=== PATIENT | male | born 1990 | race Caucasian/White ===

== ENCOUNTER 2022-11-18 09:09 | Observation (INO) | payer OTHER ==
[2022-11-18] MEDS ORDERED: SODIUM CHLORIDE 0.9% 1,000 ML IV STA (09:29)
--- NOTE | 2022-11-18 09:40 | ED ---
Arrhythmia/Palpitations HPI - General Chief Complaint: Arrhythmia/Palpitations Stated Complaint: Elevated HR Time Seen by Provider: 11/18/22 09:12 Source: patient, EMS, RN notes reviewed Mode of arrival: EMS Limitations: no limitations - History of Present Illness Initial Comments: This is a 32-year-old male presents emergency Department with chief complaint of shortness breath, palpitations. Patient states that he started having symptoms last days worse this morning states that he is short of breath with minimal exertion symptoms feel like his heart is racing just sitting there. He does admit he has been sick for her for couple weeks for polysubstance abuse has no withdrawal symptoms currently. He did test positive last week for: Report was n egative on Wednesday. Patient states he has no prior lung disease including asthma or COPD. He is a daily smoker. Patient denies any prior cardiac disease no prior thyroid problems. - Related Data Home Medications Medication Instructions Recorded Confirmed Acetaminophen [Tylenol] 650 mg PO Q4H PRN MDD 4 doses 11/18/22 11/18/22 Calcium Carb/Mag Ox/Zinc Sulf 1 tab PO TID PRN 11/18/22 11/18/22 [Gzm-Ghs-Dbsl 334-134-5 mg Tab] Chlorpheniramine Maleate 4 mg PO Q4H PRN 11/18/22 11/18/22 [Chlor-Trimeton] Hyoscyamine Sulfate [Levsin] 0.125 mg PO QID PRN 11/18/22 11/18/22 Ibuprofen [Motrin Ib] 600 mg PO Q6H PRN 11/18/22 11/18/22 Loperamide HCl [Imodium A-D] 4 mg PO QID PRN MDD 8 tablets 11/18/22 11/18/22 Metoprolol Tartrate [Lopressor] 25 mg PO BID 11/18/22 11/18/22 Multivitamins, Thera [Multivitamin 1 tab PO DAILY 11/18/22 11/18/22 (formulary)] Thiamine [Vitamin B-1] 100 mg PO DAILY 11/18/22 11/18/22 busPIRone HCL 10 mg PO TID 11/18/22 11/18/22 guaiFENesin [guaiFENesin Oral 200 mg PO Q4H PRN 11/18/22 11/18/22 Solution] ondansetron HCL [Zofran] 8 mg PO Q6H PRN 11/18/22 11/18/22 Allergies Allergy/AdvReac Type Severity Reaction Status Date / Time latex Allergy Unknown Verified 11/18/22 11:53 Review of Systems ROS Statement: Those systems with pertinent positive or pertinent negative responses have been documented in the HPI. ROS Other: All systems not noted in ROS Statement are negative. Past Medical History Past Medical History: CVA/TIA, Hypertension History of Any Multi-Drug Resistant Organisms: None Reported Past Surgical History: No Surgical Hx Reported Past Psychological History: No Psychological Hx Reported Smoking Status: Current every day smoker Past Alcohol Use History: Abuse Past Drug Use History: Cocaine, Marijuana, Opiates, Prescription Drug Abuse General Exam Limitations: no limitations General appearance: alert, in no apparent distress Head exam: Present: atraumatic, normocephalic, normal inspection Eye exam: Present: normal appearance, PERRL, EOMI. Absent: scleral icterus, con junctival injection, periorbital swelling ENT exam: Present: normal exam, normal oropharynx, mucous membranes moist Neck exam: Present: normal inspection, full ROM. Absent: tenderness, meningismus, lymphadenopathy Respiratory exam: Present: normal lung sounds bilaterally. Absent: respiratory distress, wheezes, rales, rhonchi, stridor Cardiovascular Exam: Present: normal rhythm, tachycardia, normal heart sounds. Absent: systolic murmur, diastolic murmur, rubs, gallop, clicks GI/Abdominal exam: Present: soft, normal bowel sounds. Absent: distended, tenderness, guarding, rebound, rigid Neurological exam: Present: alert, oriented X3 Skin exam: Present: warm, dry, intact, normal color. Absent: rash Course Vital Signs 11/18/22 11/18/22 09:12 09:22 Temperature 97.8 F Pulse Rate 97 135 H Respiratory 18 Rate Blood Pressure 120/78 O2 Sat by Pulse 99 Oximetry EKG Findings - EKG Comments: EKG Findings:: EKG performed at 9:31 sinus rhythm with short OR rate of 9116 QRS 86 QT/QTC 336/384 - EKG Results: EKG: interpreted by LUAN Medical Decision Making - Medical Decision Making Was pt. sent in by a medical professional or institution (, PA, OFFICE TECHNOLOGY INSTRUCTOR, urgent care, hospital, or fpc...) When possible be specific @ -[facility]] Did you speak to anyone other than the patient for history (EMS, parent, family, police, friend...)? What history was obtained from this source @ -EMS provided complaint at [facility] along with vitals and prehospital care Did you review nursing and triage notes (agree or disagree)? Why? @ -I reviewed and agree with nursing and triage notes Were old charts reviewed (outside hosp., previous admission, EMS record, old EKG, old radiological studies, urgent care reports/EKG's, fpc records)? Report findings @ -No old charts were reviewed Differential Diagnosis (chest pain, altered mental status, abdominal pain women, abdominal pain men, vaginal bleeding, weakness, fever, dyspnea, syncope, headache, dizziness, GI bleed, back pain, seizure, CVA, palpatations, mental health, musculoskeletal)? @ -nDifferential Palpitations Ventricular arrhythmias, atrial arrhythmias, myocardial infarction, anemia, thyrotoxicosis, electrolyte imbalance, hypokalemia, pulmonary embolism, pulmonary disease, drugs, alcohol, anxiety, stress.... This is not meant to be an all-inclusive list.able EKG interpreted by me (3pts min.). @ -As above X-rays interpreted by me (1pt min.). @ -Chest x-ray shows no acute process CT interpreted by me (1pt min.). @ -None done U/S interpreted by me (1pt. min.). @ -None done What testing was considered but not performed or refused? (CT, X-rays, U/S, labs)? Why? @ -None What meds were considered but not given or refused? Why? @ -None Did you discuss the management of the patient with other professionals (professionals i.e. , PA, OFFICE TECHNOLOGY INSTRUCTOR, lab, RT, psych nurse, addiction social worker, benefit authorizer, teacher, public service officer, casework manager)? Give summary @ -Dr. Bowman Givens patient's persistent tachycardia with minimal ambulation with a negative d-dimer, troponin, x-ray. Patient will be admitted for further evaluation and possible echocardiogram, cardiology evaluation. Was smoking cessation discussed for >3mins.? @ -No Was critical care preformed (if so, how long)? @ -No Were there social determinants of health that impacted care today? How? (Homelessness, low income, unemployed, alcoholism, drug addiction, transportation, low edu. Level, literacy, decrease access to med. care, fdc, rehab)? @ -No Was there de-escalation of care discussed even if they declined (Discuss DNR or withdrawal of care, Hospice)? DNR status @ -No What co-morbidities impacted this encounter? (DM, HTN, Smoking, COPD, CAD, Cancer, CVA, ARF, Chemo, Hep., AIDS, mental health diagnosis, sleep apnea, morbid obesity)? @ -None Was patient admitted / discharged? Hospital course, mention meds given and route, prescriptions, significant lab abnormalities, going to OR and other pertinent info. @ -hospital course Undiagnosed new problem with uncertain prognosis? @ -No Drug Therapy requiring intensive monitoring for toxicity (Heparin, Nitro, Insulin, Cardizem)? @ -No Were any procedures done? @ -No Diagnosis/symptom? @ -Persistent tachycardia, exertional dyspnea Acute, or Chronic, or Acute on Chronic? @ -Acute Uncomplicated (without systemic symptoms) or Complicated (systemic symptoms)? @ -Uncomplicated Side effects of treatment? @ -No Exacerbation, Progression, or Severe Exacerbation? @ -No Poses a threat to life or bodily function? How? (Chest pain, [place], [place], pneumonia, PE, COPD, DKA, ARF, appy, cholecystitis, CVA, Diverticulitis, Homicidal, Suicidal, threat to staff... and all critical care pts) @ -No - Lab Data Result diagrams: 11/18/22 09:38 11/18/22 09:38 Lab Results 11/18/22 11/18/22 11/18/22 Range/Units 09:38 09:38 09:38 WBC 6.9 (3.8-10.6) k/uL RBC 3.91 L (4.30-5.90) m/uL Hgb 11.2 L (13.0-17.5) gm/dL Hct 33.0 L (39.0-53.0) % MCV 84.4 (80.0-100.0) fL MCH 28.6 (25.0-35.0) pg MCHC 33.8 (31.0-37.0) g/dL RDW 13.5 (11.5-15.5) % Plt Count 478 H (150-450) k/uL MPV 7.3 Neutrophils % 64 % Lymphocytes % 30 % Monocytes % 4 % Eosinophils % 0 % Basophils % 0 % Neutrophils # 4.5 (1.3-7.7) k/uL Lymphocytes # 2.1 (1.0-4.8) k/uL Monocytes # 0.2 (0-1.0) k/uL Eosinophils # 0.0 (0-0.7) k/uL Basophils # 0.0 (0-0.2) k/uL PT 10.5 (9.0-12.0) sec INR 1.0 (<1.2) APTT 25.4 (22.0-30.0) sec D-Dimer <0.17 (<0.60) mg/L FEU Sodium 138 (137-145) mmol/L Potassium 4.8 (3.5-5.1) mmol/L Chloride 101 (98-107) mmol/L Carbon Dioxide 30 (22-30) mmol/L Anion Gap 7 mmol/L BUN 41 H (9-20) mg/dL Creatinine 0.63 L (0.66-1.25) mg/dL Est GFR (CKD-EPI)AfAm >90 (>60 ml/min/1.73 sqM) Est GFR (CKD-EPI)NonAf >90 (>60 ml/min/1.73 sqM) Glucose 99 (74-99) mg/dL Calcium 9.1 (8.4-10.2) mg/dL Magnesium 1.9 (1.6-2.3) mg/dL Total Bilirubin 0.3 (0.2-1.3) mg/dL AST 18 (17-59) U/L ALT 22 (4-49) U/L Alkaline Phosphatase 76 (38-126) U/L Troponin I (0.000-0.034) ng/mL Total Protein 7.1 (6.3-8.2) g/dL Albumin 4.3 (3.5-5.0) g/dL TSH 1.390 (0.465-4.680) mIU/L 11/18/22 Range/Units 09:38 WBC (3.8-10.6) k/uL RBC (4.30-5.90) m/uL Hgb (13.0-17.5) gm/dL Hct (39.0-53.0) % MCV (80.0-100.0) fL MCH (25.0-35.0) pg MCHC (31.0-37.0) g/dL RDW (11.5-15.5) % Plt Count (150-450) k/uL MPV Neutrophils % % Lymphocytes % % Monocytes % % Eosinophils % % Basophils % % Neutrophils # (1.3-7.7) k/uL Lymphocytes # (1.0-4.8) k/uL Monocytes # (0-1.0) k/uL Eosinophils # (0-0.7) k/uL Basophils # (0-0.2) k/uL PT (9.0-12.0) sec INR (<1.2) APTT (22.0-30.0) sec D-Dimer (<0.60) mg/L FEU Sodium (137-145) mmol/L Potassium (3.5-5.1) mmol/L Chloride (98-107) mmol/L Carbon Dioxide (22-30) mmol/L Anion Gap mmol/L BUN (9-20) mg/dL Creatinine (0.66-1.25) mg/dL Est GFR (CKD-EPI)AfAm (>60 ml/min/1.73 sqM) Est GFR (CKD-EPI)NonAf (>60 ml/min/1.73 sqM) Glucose (74-99) mg/dL Calcium (8.4-10.2) mg/dL Magnesium (1.6-2.3) mg/dL Total Bilirubin (0.2-1.3) mg/dL AST (17-59) U/L ALT (4-49) U/L Alkaline Phosphatase (38-126) U/L Troponin I <0.012 (0.000-0.034) ng/mL Total Protein (6.3-8.2) g/dL Albumin (3.5-5.0) g/dL TSH (0.465-4.680) mIU/L Disposition Clinical Impression: Tachycardia, Exertional dyspnea Disposition: ADMITTED IP TO THIS [facility] Condition: Fair Referrals: None,Stated [Primary Care Provider] - 1-2 days Time of Disposition: 12:51
[2022-11-18 10:16] LABS: ALT 22 U/L (4-49); AST 18 U/L (17-59); African American GFR (CKD) >90 (>60 ml/min/1.73 sqM); Albumin 4.3 g/dL (3.5-5.0); Alkaline Phosphatase 76 U/L (38-126); Anion Gap 7 mmol/L; Blood Urea Nitrogen 41 mg/dL (9-20); Calcium 9.1 mg/dL (8.4-10.2); Carbon Dioxide 30 mmol/L (22-30); Chloride 101 mmol/L (98-107); Glucose 99 mg/dL (74-99); Magnesium 1.9 mg/dL (1.6-2.3); Non-African American GFR(CKD) >90 (>60 ml/min/1.73 sqM); Potassium 4.8 mmol/L (3.5-5.1); Sodium 138 mmol/L (137-145); Total Bilirubin 0.3 mg/dL (0.2-1.3); Total Protein 7.1 g/dL (6.3-8.2)
[2022-11-18 10:17] LABS: Basophils % (A) 0 %; Eosinophils % (A) 0 %; HGB 11.2 gm/dL (13.0-17.5); Lymphocytes # (A) 2.1 k/uL (1.0-4.8); Lymphocytes % (A) 30 %; MCH 28.6 pg (25.0-35.0); MCHC 33.8 g/dL (31.0-37.0); MCV 84.4 fL (80.0-100.0); Mean Platelet Volume 7.3; Monocytes # (A) 0.2 k/uL (0-1.0); Monocytes % (A) 4 %; Neutrophils # (A) 4.5 k/uL (1.3-7.7); Neutrophils % (A) 64 %; Platelet Count 478 k/uL (150-450); RBC 3.91 m/uL (4.30-5.90); RDW 13.5 % (11.5-15.5); WBC 6.9 k/uL (3.8-10.6)
[2022-11-18 10:38] LABS: Partial Thromboplastin Time 25.4 sec (22.0-30.0); Prothrombin Time 10.5 sec (9.0-12.0)
--- NOTE | 2022-11-18 10:54 | XR ---
EXAMINATION TYPE: XR chest 2V DATE OF EXAM: 11/18/2022 COMPARISON: NONE HISTORY: Dysrhythmia. TECHNIQUE: Frontal and lateral views of the chest are obtained. FINDINGS: There is no focal air space opacity, pleural effusion, or pneumothorax seen. The cardiac silhouette size is within normal limits. The osseous structures are intact. Overlying EKG leads are present. IMPRESSION: No acute process.
[2022-11-18] MEDS ORDERED: SODIUM CHLORIDE 0.9% 1,000 ML IV ONE (11:41)
[2022-11-18] MEDS ORDERED: NALOXONE 0.4 MG/ML 1 ML VIAL IV PRN ×2 (12:51→12:54)
[2022-11-18] MEDS ORDERED: ONDANSETRON 4 MG/2 ML VIAL IVP PRN (12:51)
[2022-11-18] MEDS ORDERED: HYDROmorphone 0.5 MG/0.5 ML SYRINGE IVP PRN (12:51)
[2022-11-18] MEDS ORDERED: HYOSCYAMINE SULFATE 0.125 MG TAB PO PRN (12:55)
[2022-11-18] MEDS ORDERED: NON FORMULARY DRUG (Calcium Carb/Mag Ox/Zinc Sulf [Cal-Mag-Zinc 334-134-5 Mg Tab] 1 EACH T PO PRN (12:55)
[2022-11-18] MEDS ORDERED: diphenhydrAMINE 25 MG CAP PO PRN (12:55)
[2022-11-18] MEDS: ACETAMINOPHEN TAB 325 MG TAB PO PRN (13:18)
[2022-11-18] MEDS: SODIUM CHLORIDE 0.9% 1,000 ML IV SCH (13:19)
[2022-11-18] MEDS: busPIRone HCl 10 MG TAB PO SCH ×2 (15:57→19:55)
--- NOTE | 2022-11-18 16:10 | P.HPIM ---
History of Present Illness H&P Date: 11/18/22 Chief Complaint: Exertional shortness of breath and palpitations History of Presenting Illness: Patient is a very pleasant 32-year-old male with a past medical history of hypertension, CVA without deficits, alcohol abuse, nicotine dependence and polysubstance abuse. He was currently attending [facility] [place] due to reports of alcohol abuse, Xanax abuse, Adderall abuse, and Kratum use. Patient reports he was recently diagnosed with Covid 19 infection on 11/11/22. Patient states he was asymptomatic until yesterday when h e began noticing shortness of breath with exertion accompanied by palpitations. Patient states shortness of breath was noted with general walking in which she typically never experienced. She denies having any chest pain, headache, lightheadedness, dizziness, changes in vision or hearing, nausea, vomiting, or experiencing any numbness/tingling/weakness/swelling in his extremities. Patient underwent full evaluation in the emergency department. Labs completed and reviewed. CBC showing normocytic normochromic anemia with hemoglobin of 11.2 and mild thrombocytosis with platelet count of 478. Coagulation profile normal findings. D-dimer negative at less than 0.17. BMP unremarkable. Liver profile unremarkable. Troponin negative at less than 0.012. TSH normal findings at 1.390. EKG completed revealing normal sinus rhythm and 90 bpm with no noted T-wave or ST abnormalities showing no signs of acute ischemia. Patient's resting heart rate 90s but with minimal ambulation 130s to 150s. Chest x-ray reviewed and negative for acute cardiopulmonary process. Discussed in detail with the ED provider. Patient to be admitted under our services to observation unit at this time. Review of systems: Pertinent positives and negatives as discussed in HPI, a complete review of systems was performed and all other systems are negative. Physical exam: Vital signs reviewed and stable. General: Nontoxic, no distress and appears stated age. Derm: Skin warm and dry, normal coloration for ethnicity. Head: Atraumatic, normocephalic and symmetric. Eyes: EOMs intact, no lid lag, and anicteric sclera Mouth: no lip lesions, mucus membranes moist Cardiovascular: regular rate and rhythm with normal S1S2, no murmur, positive posterior tibial pulses bilaterally, and cap refill < 2 seconds. Lungs: Respirations even, regular, and unlabored on room air. Lungs CTA bilaterally, no rhonchi, no rales, no wheezing, and no accessory muscle usage. Abdominal: soft, nontender to palpation, no guarding, no appreciable organomegaly Ext: ROM intact. No gross muscle atrophy, no edema, no contractures Neuro: Speech clear, face symmetrical and CN II-XII grossly intact with no noted focal neuro deficits Psych: Alert and oriented to person, place, time, and situation. Appropriate and pleasant affect. Assessment and Plan of Care: Exertional shortness of breath Palpitations Polysubstance abuse Alcohol abuse Nicotine dependence Hypertension History of CVA -Labs completed and reviewed. CBC showing normocytic normochromic anemia with hemoglobin of 11.2 and mild thrombocytosis with platelet count of 478. Coagulation profile normal findings. D-dimer negative at less than 0.17. BMP unremarkable. Liver profile unremarkable. Troponin negative at less than 0.012. TSH normal findings at 1.390. -EKG completed revealing normal sinus rhythm and 90 bpm with no noted T-wave or ST abnormalities showing no signs of acute ischemia. -Patient's resting heart rate 90s but with minimal ambulation 130s to 150s. -Chest x-ray reviewed and negative for acute cardiopulmonary process. -Discussed in detail with the ED provider. -Patient to be admitted under our services to observation unit at this time. -Secondary to patient's reports of previous ischemic stroke and patient's complaints of new onset shortness of breath and palpitations with noted tachycardia upon ambulation, will place order for CT PE to completely rule out pulmonary emboli. -Echocardiogram to be completed. -Telemetry monitoring. The patient is admitted with an anticipated less than 2 midnight stay for evaluation of palpitations and exertional shortness of breath CODE STATUS: Full code DVT prophylaxis: Heparin Discussed with: Patient, RN, in ED provider Anticipated discharge date: 1-[address]: Clinical course to determine Patient was seen independently by Nurse Practitioner. This document was prepared using Dapt dictation software. Please allow for errors in special education director while rare they do occur. I reviewed the documentation as provided by the NAZ above, who is the original author of this note. I agree with the documented assessment and plan, with the following changes: none Past Medical History Past Medical History: CVA/TIA, Hypertension History of Any Multi-Drug Resistant Organisms: None Reported Past Surgical History: No Surgical Hx Reported Past Psychological History: No Psychological Hx Reported Smoking Status: Current every day smoker Past Alcohol Use History: Abuse Past Drug Use History: Cocaine, Marijuana, Opiates, Prescription Drug Abuse Medications and Allergies Home Medications Medication Instructions Recorded Confirmed Type Acetaminophen [Tylenol] 650 mg PO Q4H PRN MDD 4 doses 11/18/22 11/18/22 History Calcium Carb/Mag Ox/Zinc Sulf 1 tab PO TID PRN 11/18/22 11/18/22 History [Rru-Ekg-Nfdv 334-134-5 mg Tab] Chlorpheniramine Maleate 4 mg PO Q4H PRN 11/18/22 11/18/22 History [Chlor-Trimeton] Hyoscyamine Sulfate [Levsin] 0.125 mg PO QID PRN 11/18/22 11/18/22 History Ibuprofen [Motrin Ib] 600 mg PO Q6H PRN 11/18/22 11/18/22 History Loperamide HCl [Imodium A-D] 4 mg PO QID PRN MDD 8 tablets 11/18/22 11/18/22 History Multivitamins, Thera [Multivitamin 1 tab PO DAILY 11/18/22 11/18/22 History (formulary)] Thiamine [Vitamin B-1] 100 mg PO DAILY 11/18/22 11/18/22 History busPIRone HCL 10 mg PO TID 11/18/22 11/18/22 History guaiFENesin [guaiFENesin Oral 200 mg PO Q4H PRN 11/18/22 11/18/22 History Solution] ondansetron HCL [Zofran] 8 mg PO Q6H PRN 11/18/22 11/18/22 History Metoprolol Tartrate [Lopressor] 50 mg PO BID 60 Days #60 tab 11/21/22 Rx Allergies Allergy/AdvReac Type Severity Reaction Status Date / Time latex Allergy Unknown Verified 11/18/22 11:53 Physical Exam Vitals: Vital Signs Temp Pulse Resp BP Pulse Ox 11/18/22 09:22 135 H 11/18/22 09:12 97.8 F 97 18 120/78 99 Intake and Output 11/17/22 11/18/22 11/18/22 22:59 06:59 14:59 Other: Weight 77.111 kg Results CBC & Chem 7: 11/18/22 09:38 11/19/22 20:50 Labs: Abnormal Lab Results - Last 24 Hours (Table) 11/18/22 11/18/22 Range/Units 09:38 09:38 RBC 3.91 L (4.30-5.90) m/uL Hgb 11.2 L (13.0-17.5) gm/dL Hct 33.0 L (39.0-53.0) % Plt Count 478 H (150-450) k/uL BUN 41 H (9-20) mg/dL Creatinine 0.63 L (0.66-1.25) mg/dL
--- NOTE | 2022-11-18 19:46 | CT ---
EXAMINATION TYPE: CT chest angio for PE CT DLP: 295.20 mGycm, Automated exposure control for dose reduction was used. DATE OF EXAM: 11/18/2022 7:34 PM COMPARISON: None CLINICAL INDICATION:Male, old with history of d-dimer was negative, concerns for possible PE; -dimer was negative, concerns for possible PE, SOB and elevated HR. TECHNIQUE/CONTRAST: CTA scan of the thorax is performed with IV Contrast, patient injected with 60 mL of Isovue 370, pulm onary embolism protocol. MIP images are created and reviewed these are created on a separate worksta tion.. FINDINGS: Pulmonary Artery: There is no evidence for a filling defect within the pulmonary vasculature to sugge st acute pulmonary embolism. The pulmonary artery is of normal size. Lungs/Pleura: No evidence of focal consolidation, pleural effusion or pneumothorax. Airway: Large airways are patent. Heart: Heart is within normal limits for size. Vasculature: No evidence of aortic aneurysm. Mediastinum: No gross evidence of adenopathy. Musculoskeletal: No acute osseous abnormalities Soft Tissues: Unremarkable. Lower neck: No significant findings. Upper Abdomen: No significant findings. IMPRESSION: No evidence of pulmonary embolism.
[2022-11-18] MEDS: HEPARIN SODIUM,PORCINE/PF 5,000 UNIT/0.5 ML SYRINGE SQ SCH (19:55)
[2022-11-18] MEDS: METOPROLOL TARTRATE 25 MG TAB PO SCH (19:55)
[2022-11-18] MEDS: IBUPROFEN 600 MG TAB PO PRN (20:38)
[2022-11-19] MEDS: SODIUM CHLORIDE 0.9% 1,000 ML IV SCH ×3 (02:22→22:53)
[2022-11-19] MEDS: ACETAMINOPHEN TAB 325 MG TAB PO PRN (09:28)
[2022-11-19] MEDS: METOPROLOL TARTRATE 25 MG TAB PO SCH (09:29)
[2022-11-19] MEDS: THIAMINE 100 MG TAB PO SCH (09:29)
[2022-11-19] MEDS: busPIRone HCl 10 MG TAB PO SCH ×3 (09:29→21:39)
[2022-11-19] MEDS: HEPARIN SODIUM,PORCINE/PF 5,000 UNIT/0.5 ML SYRINGE SQ SCH ×3 (09:32→21:39)
[2022-11-19] MEDS: IBUPROFEN 600 MG TAB PO PRN (11:52)
--- NOTE | 2022-11-19 17:28 | P.PN ---
Subjective Progress Note Date: 11/19/22 Patient is a very pleasant 32-year-old male with a past medical history of hypertension, CVA without deficits, alcohol abuse, nicotine dependence and polysubstance abuse. He was currently attending [facility] [place] due to reports of alcohol abuse, Xanax abuse, Adderall abuse, and Kratum use. Patient reports he was recently diagnosed with Covid 19 infection on 11/11/22. Patient states he was asymptomatic until yesterday when he began noticing shortness of breath with exertion accompanied by palpitations. Patient states shortness of breath was noted with general walking in which she typically never experienced. She denies having any chest pain, headache, lightheadedness, dizziness, changes in vision or hearing, nausea, vomiting, or experiencing any numbness/tingling/weakness/swelling in his extremities. Patient underwent full evaluation in the emergency department. Labs completed and reviewed. CBC showing normocytic normochromic anemia with hemoglobin of 11.2 and mild thrombocytosis with platelet count of 478. Coagulation profile normal findings. D-dimer negative at less than 0.17. BMP unremarkable. Liver profile unremarkable. Troponin negative at less than 0.012. TSH normal findings at 1.390. EKG completed revealing normal sinus rhythm and 90 bpm with no noted T-wave or ST abnormalities showing no signs of acute ischemia. P atient's resting heart rate 90s but with minimal ambulation 130s to 150s. Chest x-ray reviewed and negative for acute cardiopulmonary process. Discussed in detail with the ED provider. Patient to be admitted under our services to observation unit at this time. Review of systems: Pertinent positives and negatives as discussed in HPI, a complete review of systems was performed and all other systems are negative. Physical exam: Vital signs reviewed and stable. General: Nontoxic, no distress and appears stated age. Derm: Skin warm and dry, normal coloration for ethnicity. Head: Atraumatic, normocephalic and symmetric. Eyes: EOMs intact, no lid lag, and anicteric sclera Mouth: no lip lesions, mucus membranes moist Cardiovascular: regular rate and rhythm with normal S1S2, no murmur, positive posterior tibial pulses bilaterally, and cap refill < 2 seconds. Lungs: Respirations even, regular, and unlabored on room air. Lungs CTA bilaterally, no rhonchi, no rales, no wheezing, and no accessory muscle usage. Abdominal: soft, nontender to palpation, no guarding, no appreciable or ganomegaly Ext: ROM intact. No gross muscle atrophy, no edema, no contractures Neuro: Speech clear, face symmetrical and CN II-XII grossly intact with no noted focal neuro deficits Psych: Alert and oriented to person, place, time, and situation. Appropriate and pleasant affect. Assessment and Plan of Care: Exertional shortness of breath Palpitations Polysubstance abuse, patient reports last abused Adderall and Xanax greater than 2 weeks ago. Alcohol abuse Nicotine dependence Hypertension History of CVA -Patient's resting heart rate remains 90s to 110s and continues to increase to 130s to 150s with minimal ambulation. -metoprolol increased to 50 mg twice a day. -echocardiogram has been completed and currently pending results. -cardiology consulted, appreciate recommendations. -Patient to remain on continuous telemetry monitoring. -CTA was completed overnight and reviewed negative for acute process showing no signs of pulmonary emboli. CODE STATUS: Full code DVT prophylaxis: Heparin Discussed with: Patient, RN, in ED provider Anticipated discharge date: tomorrow Anticipated discharge place: Clinical course to determine Patient was seen independently by Nurse Practitioner. This document was prepared using Tumblr dictation software. Please allow for errors in contact worker lithography while rare they do occur. I reviewed the documentation as provided by the NAZ above, who is the original author of this note. I agree with the documented assessment and plan, with the following changes: none Objective - Vital Signs Vital signs: Vital Signs Temp 97.5 F L 11/19/22 08:00 Pulse 107 H 11/19/22 08:00 Resp 18 11/19/22 08:00 BP 114/73 11/19/22 08:00 Pulse Ox 100 11/19/22 08:00 FiO2 Intake & Output 11/18/22 11/19/22 11/19/22 18:59 06:59 18:59 Intake Total 240 240 Output Total 0 Balance 240 240 Weight 77.111 kg Intake: Oral 240 240 Output: Urine 0 Other: # Voids 0 2 0 - Labs CBC & Chem 7: 11/18/22 09:38 11/19/22 20:50 Labs: Abnormal Lab Results - Last 24 Hours (Table) 11/18/22 11/18/22 Range/Units 09:38 09:38 RBC 3.91 L (4.30-5.90) m/uL Hgb 11.2 L (13.0-17.5) gm/dL Hct 33.0 L (39.0-53.0) % Plt Count 478 H (150-450) k/uL BUN 41 H (9-20) mg/dL Creatinine 0.63 L (0.66-1.25) mg/dL
[2022-11-19] MEDS: METOPROLOL TARTRATE 50 MG TAB PO SCH (18:40)
[2022-11-19 21:53] LABS: African American GFR (CKD) >90 (>60 ml/min/1.73 sqM); Anion Gap 6 mmol/L; Blood Urea Nitrogen 33 mg/dL (9-20); Carbon Dioxide 28 mmol/L (22-30); Chloride 103 mmol/L (98-107); Glucose 149 mg/dL (74-99); Non-African American GFR(CKD) >90 (>60 ml/min/1.73 sqM); Potassium 4.5 mmol/L (3.5-5.1); Sodium 137 mmol/L (137-145)
[2022-11-19] MEDS ORDERED: SODIUM CHLORIDE 0.9% 1,000 ML IV ONE (22:53)
[2022-11-20] MEDS: SODIUM CHLORIDE 0.9% 1,000 ML IV SCH ×4 (00:28→23:50)
[2022-11-20] MEDS: ACETAMINOPHEN TAB 325 MG TAB PO PRN ×2 (06:48→17:57)
[2022-11-20] MEDS: HEPARIN SODIUM,PORCINE/PF 5,000 UNIT/0.5 ML SYRINGE SQ SCH ×3 (08:03→20:58)
[2022-11-20] MEDS: busPIRone HCl 10 MG TAB PO SCH ×3 (08:53→20:59)
[2022-11-20] MEDS: THIAMINE 100 MG TAB PO SCH (08:53)
[2022-11-20] MEDS: IBUPROFEN 600 MG TAB PO PRN (08:53)
--- NOTE | 2022-11-20 09:27 | P.CRDCN ---
History of Present Illness History of present illness: HISTORY OF PRESENT ILLNESS: This is a 32-year-old male with a past medical history significant for hypertension, CVA, alcohol abuse, and polysubstance abuse. 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 We have been asked to see the patient in consultation for tachycardia and shortness of breath. Patient examined at the bedside. Patient is currently at [facility] for rehab. Patient states he was recently diagnosed with Covid. Patient reports shortness of breath and chest tightness with minimal exertion such as walking to the bathroom. Patients heart rate is currently in the 90s. It is noted that he becomes tachycardic with any exertion. Patient's blood pressure stable with a recent reading of 113/74. * EKG reveals sinus mechanism with no signs of acute ischemia * Chest x-ray: Negative for acute process * Chest CTA: Negative for PE * Laboratory data: WBC 6.9. Hemoglobin 11.2. Platelet count 478. D-dimer 0.17. Sodium 137. Potassium 4.5. BUN 33. Creatinine 0.69. Lactic acid 2.5. Repeat 1.0. Troponin negative 1. TSH 1.390. * Current home cardiac medications include metoprolol 25 mg twice a day REVIEW OF SYSTEMS: At the time of my exam: CONSTITUTIONAL: Denies fever or chills. HEENT: Denies blurred vision, vision changes, or eye pain. Denies hemoptysis CARDIOVASCULAR: Denies chest pain. Denies orthopnea. Denies PND. Denies palpitations RESPIRATORY: Denies shortness of breath. GASTROINTESTINAL: Denies abdominal pain. Denies nausea or vomiting. HEMATOLOGIC: Denies bleeding disorders. GENITOURINARY: Denies any blood in urine. SKIN: Denies pruitis. Denies rash. PHYSICAL EXAM: VITAL SIGNS: Reviewed. GENERAL: Well-developed in no acute distress. HEENT: Head is normocephalic. Pupils are equal, round. Sclerae anicteric. Mucous membranes of the mouth are moist. Neck supple. No JVD or thyromegaly LUNGS: Respirations even and unlabored. Lungs essentially clear to auscultation bilaterally. HEART: Regular rate and rhythm. S1 and S2 heard. ABDOMEN: Soft. Nondistended. Nontender. EXTREMITIES: Normal range of motion. No clubbing or cyanosis. Peripheral pulses intact. No lower extremity edema NEUROLOGIC: Awake and alert. Oriented x 3. ASSESSMENT: Shortness of breath and chest tightness with exertion, troponin negative 1 Sinus tachycardia with exertion History of hypertension History of CVA History of alcohol abuse History of polysubstance abuse PLAN: Trend troponins If second troponin comes back normal, patient will undergo stress testing today Obtain 2-D echo to assess cardiac structure and function Continue telemetry monitoring Patient's metoprolol has been increased per primary medicine Further recommendations pending patient's course Nurse practitioner note has been reviewed by physician. Signing provider agrees with the documented findings, assessment, and plan of care. Past Medical History Past Medical History: CVA/TIA, Hypertension History of Any Multi-Drug Resistant Organisms: None Reported Past Surgical History: No Surgical Hx Reported Past Psychological History: No Psychological Hx Reported Smoking Status: Current every day smoker Past Alcohol Use History: Abuse Past Drug Use History: Cocaine, Marijuana, Opiates, Prescription Drug Abuse Medications and Allergies Home Medications Medication Instructions Recorded Confirmed Type Acetaminophen [Tylenol] 650 mg PO Q4H PRN MDD 4 doses 11/18/22 11/18/22 History Calcium Carb/Mag Ox/Zinc Sulf 1 tab PO TID PRN 11/18/22 11/18/22 History [Ccp-Zkg-Rivv 334-134-5 mg Tab] Chlorpheniramine Maleate 4 mg PO Q4H PRN 11/18/22 11/18/22 History [Chlor-Trimeton] Hyoscyamine Sulfate [Levsin] 0.125 mg PO QID PRN 11/18/22 11/18/22 History Ibuprofen [Motrin Ib] 600 mg PO Q6H PRN 11/18/22 11/18/22 History Loperamide HCl [Imodium A-D] 4 mg PO QID PRN MDD 8 tablets 11/18/22 11/18/22 History Metoprolol Tartrate [Lopressor] 25 mg PO BID 11/18/22 11/18/22 History Multivitamins, Thera [Multivitamin 1 tab PO DAILY 11/18/22 11/18/22 History (formulary)] Thiamine [Vitamin B-1] 100 mg PO DAILY 11/18/22 11/18/22 History busPIRone HCL 10 mg PO TID 11/18/22 11/18/22 History guaiFENesin [guaiFENesin Oral 200 mg PO Q4H PRN 11/18/22 11/18/22 History Solution] ondansetron HCL [Zofran] 8 mg PO Q6H PRN 11/18/22 11/18/22 History Allergies Allergy/AdvReac Type Severity Reaction Status Date / Time latex Allergy Unknown Verified 11/18/22 11:53 Physical Exam Vitals: Vital Signs Temp Pulse Resp BP Pulse Ox 11/20/22 03:48 98.1 F 67 116/77 98 11/20/22 00:32 98.6 F 86 123/89 96 11/19/22 20:00 97.6 F 127 H 16 106/70 100 11/19/22 18:30 138 H 11/19/22 12:12 99 11/19/22 12:00 98 F 101 H 18 110/76 99 11/19/22 10:36 98 18 11/19/22 08:00 97.5 F L 107 H 18 114/73 100 Intake and Output 11/19/22 11/20/22 11/20/22 22:59 06:59 14:59 Intake Total 120 Balance 120 Intake: Oral 120 Other: Voiding Method Toilet # Voids 1 Weight 76.3 kg Results 11/18/22 09:38 11/19/22 20:50 Comprehensive Metabolic Panel 11/19/22 Range/Units 20:50 Sodium 137 (137-145) mmol/L Potassium 4.5 (3.5-5.1) mmol/L Chloride 103 (98-107) mmol/L Carbon Dioxide 28 (22-30) mmol/L BUN 33 H (9-20) mg/dL Creatinine 0.69 (0.66-1.25) mg/dL Glucose 149 H (74-99) mg/dL Calcium 8.0 L (8.4-10.2) mg/dL Current Medications Generic Name Dose Route Start Last Admin Trade Name Freq PRN Reason Stop Dose Admin Acetaminophen 650 mg 11/18/22 12:55 11/20/22 06:48 Acetaminophen Tab 325 Mg Tab PO 650 mg Q4H PRN Administration Pain or Fever > 100.5 Buspirone HCl 10 mg 11/18/22 16:00 11/19/22 21:39 Buspirone Hcl 10 Mg Tab PO 10 mg TID RACHID Administration Diphenhydramine HCl 25 mg 11/18/22 12:55 Diphenhydramine 25 Mg Cap PO Q4H PRN Allergy Symptoms Heparin Sodium (Porcine) 5,000 unit 11/19/22 00:00 11/19/22 21:39 Heparin Sodium,Porcine/Pf 5,000 Unit/0.5 Ml Syringe SQ Not Given Q8HR RACHID Hyoscyamine 0.125 mg 11/18/22 12:55 Hyoscyamine Sulfate 0.125 Mg Tab PO QID PRN STOMACH CRAMPS Sodium Chloride 1,000 mls @ 125 mls/hr 11/18/22 13:00 11/20/22 00:28 Saline 0.9% IV 125 mls/hr .Q8H RACHID Administration Ibuprofen 600 mg 11/18/22 12:55 11/19/22 11:52 Ibuprofen 600 Mg Tab PO 600 mg Q6H PRN Administration Pain Metoprolol Tartrate 50 mg 11/19/22 21:00 11/19/22 18:40 Metoprolol Tartrate 50 Mg Tab PO 50 mg BID RACHID Administration Naloxone HCl 0.2 mg 11/18/22 12:54 Naloxone 0.4 Mg/Ml 1 Ml Vial IV Q2M PRN Opioid Reversal Thiamine HCl 100 mg 11/19/22 09:00 11/19/22 09:29 Thiamine 100 Mg Tab PO 100 mg DAILY RACHID Administration Intake and Output 11/19/22 11/20/22 11/20/22 22:59 06:59 14:59 Intake Total 120 Balance 120 Intake: Oral 120 Other: Voiding Method Toilet # Voids 1 Weight 76.3 kg 11/18/22 09:38 11/19/22 20:50
--- NOTE | 2022-11-20 09:44 | CA ---
Transthoracic Echo Report Name: Adair Hernández Age: 32 Gender: M : 1990 Exam Date: 11/19/2022 09:21 Exam Location: [facility] Ht (in): 68 Wt (lb): 170 Ordering Physician: Ivan Saunders Attending/Referring Phys: [id number], Nicky Senior Stock Plan Administrator Celine Loyola, CHENTE Procedure CPT: Indications: exertional dyspnea, tachycardia Cardiac Hx: Technical Quality: Fair Contrast 1: Total Dose (mL): Contrast 2: Total Dose (mL): MEASUREMENTS (Male / Female) Normal Values 2D ECHO LV Diastolic Diameter PLAX 4.0 cm 4.2 - 5.9 / 3.9 - 5.3 cm LV Systolic Diameter PLAX 2.6 cm IVS Diastolic Thickness 1.2 cm 0.6 - 1.0 / 0.6 - 0.9 cm LVPW Diastolic Thickness 1.3 cm 0.6 - 1.0 / 0.6 - 0.9 cm LV Relative Wall Thickness 0.6 RV Internal Dim ED PLAX 2.6 cm LA Volume 22.8 cm??? 18 - 58 / 22 - 52 cm??? M-MODE Aortic Root Diameter MM 3.2 cm LA Systolic Diameter MM 2.5 cm LA Ao Ratio MM 0.8 AV Cusp Separation MM 1.9 cm DOPPLER AV Peak Velocity 138.6 cm/s AV Peak Gradient 7.7 mmHg AV Mean Velocity 115.0 cm/s AV Mean Gradient 5.5 mmHg AV Velocity Time Integral 21.5 cm LVOT Peak Velocity 109.8 cm/s LVOT Peak Gradient 4.8 mmHg LVOT Velocity Time Integral 18.4 cm MV Area PHT 6.1 cm??? Mitral E Point Velocity 77.1 cm/s Mitral A Point Velocity 83.8 cm/s Mitral E to A Ratio 0.9 MV Deceleration Time 125.0 ms MV E' Velocity 6.4 cm/s Mitral E to MV E' Ratio 12.0 TR Peak Velocity 288.4 cm/s TR Peak Gradient 33.3 mmHg Right Ventricular Systolic Press 38.3 mmHg FINDINGS Left Ventricle Mildly increased left ventricular wall thickness. Normal left ventricular systolic function with no obvious regional wall motion abnormalities. Left ventricular ejection fraction is estimated at 55-60 %. Right Ventricle Normal right ventricular size and function. Mild pulmonary hypertension. Right Atrium Normal right atrial size. Left Atrium Normal left atrial size. Mitral Valve Structurally normal mitral valve. No mitral stenosis, regurgitation or prolapse. Aortic Valve Trileaflet aortic valve. No aortic valve stenosis or regurgitation. Tricuspid Valve Structurally normal tricuspid valve. Mild tricuspid regurgitation. Pulmonic Valve Structurally normal pulmonic valve. Pericardium No pericardial effusion. Aorta Normal size aortic root and proximal ascending aorta. CONCLUSIONS Normal LV systolic function Previewed by: Dr. Marbin Alex MD (Electronically Signed) Final Date: 20 November 2022 09:43
--- NOTE | 2022-11-20 09:48 | P.PN ---
Subjective Progress Note Date: 11/20/22 Hospital course: Patient is a very pleasant 32-year-old male with a past medical history of hypertension, CVA without deficits, alcohol abuse, nicotine dependence and polysubstance abuse. He was currently attending [facility] [place] due to reports of alcohol abuse, Xanax abuse, Adderall abuse, and Kratum use. Patient reports he was recently diagnosed with Covid 19 infection on 11/11/22. Patient states he was asymptomatic until yesterday when he began noticing shortness of breath with exertion accompanied by palpitations. Patient states shortness of breath was noted with general walking in which she typically never experienced. She denies having any chest pain, headache, lightheadedness, dizziness, changes in vision or hearing, nausea, vomiting, or experiencing any numbness/tingling/weakness/swelling in his extremities. Grover abdi underwent full evaluation in the emergency department. Labs completed and reviewed. CBC showing normocytic normochromic anemia with hemoglobin of 11.2 and mild thrombocytosis with platelet count of 478. Coagulation profile normal findings. D-dimer negative at less than 0.17. BMP unremarkable. Liver profile unremarkable. Troponin negative at less than 0.012. TSH normal findings at 1.3 90. EKG completed revealing normal sinus rhythm and 90 bpm with no noted T-wave or ST abnormalities showing no signs of acute ischemia. Patient's resting heart rate 90s but with minimal ambulation 130s to 150s. Chest x-ray reviewed and negative for acute cardiopulmonary process. Discussed in detail with the ED provider. Patient to be admitted under our services to observation unit at this time. CTA was completed overnight and reviewed negative for acute process showing no signs of pulmonary emboli. Patient continued to have episodes of tachycardia and on the evening of 09/21/22 patient's resting heart rate increasing to 138. Beta zachary was increased from 25 mg twice a day to 50 mg twice a day and cardiology was consulted. Troponins repeated and trended by cardiology again negative at less than 0.0122 additional draws. Cardiology evaluated patient and planning to take patient for cardiac stress test later today. Physical exam: Patient seen and fully evaluated at bedside. Patient continues to report shortness of breath with exertion as well as palpitations at rest and with ambulation. He currently denies having any chest pain or discomfort, dizziness, lightheadedness, changes in vision or hearing, or experiencing any numbness/tingling/weakness in his extremities. Vital signs reviewed and stable. General: Nontoxic, no distress and appears stated age. Derm: Skin warm and dry, normal coloration for ethnicity. Head: Atraumatic, normocephalic and symmetric. Eyes: EOMs intact, no lid lag, and anicteric sclera Mouth: no lip lesions, mucus membranes moist Cardiovascular: regular rate and rhythm with normal S1S2, no murmur, positive posterior tibial pulses bilaterally, and cap refill < 2 seconds. Lungs: Respirations even, regular, and unlabored on room air. Lungs CTA bilaterally, no rhonchi, no rales, no wheezing, and no accessory muscle usage. Abdominal: soft, nontender to palpation, no guarding, no appreciable organomegaly Ext: ROM intact. No gross muscle atrophy, no edema, no contractures Neuro: Speech clear, face symmetrical and CN II-XII grossly intact with no noted focal neuro deficits Psych: Alert and oriented to person, place, time, and situation. Appropriate and pleasant affect. Assessment and Plan of Care: Sinus tachycardia Exertional shortness of breath Palpitations Polysubstance abuse, patient reports last abused Adderall and Xanax greater than 2 weeks ago. Alcohol abuse Nicotine dependence Hypertension History of CVA Lactic acidosis, resolved after IV fluid hydration. Prerenal azotemia, improved with IV fluid hydration. -Patient's resting heart rate remains 90s to 110s and continues to increase to 130s to 150s with minimal ambulation. -Metoprolol was increased to 50 mg twice a day. -Cardiology evaluated and planning to take patient for stress test later today. -Echocardiogram completed and results reviewed. Echocardiogram revealing a normal EF of 55-60% with mild tricuspid regurgitation and no other valvular structural abnormalities present. -Cardiology consulted, taking patient for stress test. -Patient to remain on continuous telemetry monitoring. -CTA was completed overnight and reviewed negative for acute process showing no signs of pulmonary emboli. CODE STATUS: Full code DVT prophylaxis: Heparin Discussed with: Patient, RN, and bulk station agent, Dr. Alex Anticipated discharge date: tomorrow Anticipated discharge place: Clinical course to determine Patient was seen independently by Nurse Practitioner. This document was prepared using [employer] dictation software. Please allow for errors in ancillary services manager therapy while rare they do occur. I reviewed the documentation as provided by the NAZ above, who is the original author of this note. I agree with the documented assessment and plan, with the following changes: none Objective - Vital Signs Vital signs: Vital Signs Temp 98.1 F 11/20/22 08:00 Pulse 99 11/20/22 08:00 Resp 16 11/20/22 08:00 BP 113/74 11/20/22 08:00 Pulse Ox 99 11/20/22 08:00 FiO2 Intake & Output 11/19/22 11/20/22 11/20/22 18:59 06:59 18:59 Intake Total 600 Balance 600 Weight 76.3 kg Intake: Oral 600 Other: Voiding Method Toilet Toilet # Voids 1 - Labs CBC & Chem 7: 11/18/22 09:38 11/19/22 20:50 Labs: Abnormal Lab Results - Last 24 Hours (Table) 11/19/22 11/19/22 Range/Units 20:50 20:50 BUN 33 H (9-20) mg/dL Glucose 149 H (74-99) mg/dL Plasma Lactic Acid Addy 2.5 H* (0.7-2.0) mmol/L Calcium 8.0 L (8.4-10.2) mg/dL
[2022-11-20] MEDS: ASPIRIN 81 MG PO SCH (10:03)
[2022-11-20] MEDS: METOPROLOL TARTRATE 50 MG TAB PO SCH ×2 (17:45→17:56)
--- NOTE | 2022-11-20 19:33 | CA ---
Exercise Stress Test Report Name: Adair Hernández Exam Date: 11/20/2022 13:43 Exam Location: [facility] Ht (in): 68 Wt (lb): 168 BSA: 1.90 Ordering Phys: Esme Crain Referring Phys: KACY, Technologist: Demian Gutierrez Age: 32 Gender: M : 1990 Procedure CPT: Indications: CP ICD-10 Codes: Patient History: CHEST PAIN, DIFFICULTY IN BREATHING, PALPITATIONS, HTN, PRIOR STROKE, FAMILY HX OF HEART DISEASE, PRIOR SMOKER Medications: Meds past 24 hrs: Pretest Chest Pain: STRESS TEST Bryant Protocol Exercise Duration (min:sec): 01:[address] Depressions (mm): Angina Score: Yanez Score: Resting HR (bpm): 119 Peak HR (bpm): 168 Resting BP (mmHg): 145 / 85 Peak BP (mmHg): 174 / 77 MPHR: 187 Target HR: 159 % MPHR: 90 METS: 2.4 Total Dose: Peak Dose: Atropine: Double Product: 09862 BP Response: Stress Termination: Target HR,Fatigue,Chest Pain Stress Symptoms: FATIGUE,DIZZINESS,CHEST PAIN Stress Summary: ECG ANALYSIS Resting ECG: Stress ECG: CONCLUSIONS Poor exercise tolerance Normal EKG in response to exercise Dr. Marbin Alex MD (Electronically Signed) Final Date: 20 November 2022 19:33
[2022-11-21] MEDS: ACETAMINOPHEN TAB 325 MG TAB PO PRN ×2 (06:46→18:45)
[2022-11-21] MEDS: SODIUM CHLORIDE 0.9% 1,000 ML IV SCH ×2 (06:47→17:01)
[2022-11-21] MEDS ORDERED: HEPARIN SODIUM,PORCINE 10,000 UNIT in SODIUM CHLORIDE 0.9% 1,000 ML IRRIGATION PRN (07:00)
[2022-11-21] MEDS ORDERED: HEPARIN SODIUM,PORCINE 2,500 UNIT in SODIUM CHLORIDE 0.9% 250 ML IRRIGATION PRN (07:00)
[2022-11-21] MEDS: HEPARIN SODIUM,PORCINE/PF 5,000 UNIT/0.5 ML SYRINGE SQ SCH ×2 (08:11→14:23)
[2022-11-21] MEDS ORDERED: ALPRAZolam 0.25 MG TAB PO PRN (09:24)
[2022-11-21] MEDS ORDERED: NITROGLYCERIN SL TABS 0.4 MG TAB SUBLINGUAL PRN (09:24)
[2022-11-21] MEDS ORDERED: ALPRAZolam 0.5 MG TAB PO PRN (09:24)
[2022-11-21] MEDS ORDERED: ASPIRIN 325 MG TAB PO STA (09:24)
[2022-11-21] MEDS ORDERED: ATORVASTATIN 80 MG TAB PO STA (09:24)
--- NOTE | 2022-11-21 09:24 | P.PN ---
Subjective HISTORY OF PRESENT ILLNESS: This is a 32-year-old male with a past medical history significant for hypertension, CVA, alcohol abuse, and polysubstance abuse. 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 We have been asked to see the patient in c onsultation for tachycardia and shortness of breath. Patient examined at the bedside. Patient is currently at [facility] for rehab. Patient states he was recently diagnosed with Covid. Patient reports shortness of breath and chest tightness with minimal exertion such as walking to the bathroom. Patients heart rate is currently in the 90s. It is noted that he becomes tachycardic with any exertion. Patient's blood pressure stable with a recent reading of 113/74. * EKG reveals sinus mechanism with no signs of acute ischemia * Chest x-ray: Negative for acute process * Chest CTA: Negative for PE * Laboratory data: WBC 6.9. Hemoglobin 11.2. Platelet count 478. D-dimer 0.17. Sodium 137. Potassium 4.5. BUN 33. Creatinine 0.69. Lactic acid 2.5. Repeat 1.0. Troponin negative 1. TSH 1.390. * Current home cardiac medications include metoprolol 25 mg twice a day 11/21 Patient seen and examined. Patient underwent stress EKG yesterday with very limited exercise capacity only able to exercise for a minute and a half and then developed tachycardia and chest tightness and shortness breath and had to stop. He admits this has been somewhat worse even since he came in and cannot walk to the bathroom without becoming short of breath and occasionally tightness. He does have strong family history of father with multiple bypasses starting in his 40s and stents. He admits he had per Dominelli recovered from his Covid and had been feeling fairly well last week and much of the symptoms are new in the last 3 days somewhat more concerning for unstable angina. Telemetry still shows si nus rhythm without significant arrhythmia and sinus tachycardia. PHYSICAL EXAM: VITAL SIGNS: Reviewed. GENERAL: Well-developed in no acute distress. HEENT: Head is normocephalic. Pupils are equal, round. Sclerae anicteric. Mucous membranes of the mouth are moist. Neck supple. No JVD or thyromegaly LUNGS: Respirations even and unlabored. Lungs essentially clear to auscultation bilaterally. HEART: Regular rate and rhythm. S1 and S2 heard. ABDOMEN: Soft. Nondistended. Nontender. EXTREMITIES: Normal range of motion. No clubbing or cyanosis. Peripheral pulses intact. No lower extremity edema NEUROLOGIC: Awake and alert. Oriented x 3. ASSESSMENT: New-onset of chest tightness, shortness breath, tachycardia with minimal exertion without significant explanation. Concerning for unstable angina Sinus tachycardia with exertion History of hypertension History of CVA History of alcohol abuse History of polysubstance abuse Strong family history of coronary artery disease PLAN: Patient's stress EKG portion was normal however patient only exercise a minute and a half with extremely poor exercise tolerance for his age and admits no or near his normal exercise capacity and developed chest tightness and shortness breath on the treadmill. We discussed that chest tightness and an of itself is considered abnormal stress test and given some risk factors with drug use and family history definitive evaluation with heart catheterization patient is agreeable. Heart catheterization today and if unrevealing patient may be discharged home with metoprolol. Objective - Vital Signs Vital signs: Vital Signs Temp 98.4 F 11/21/22 08:00 Pulse 101 H 11/21/22 08:00 Resp 20 11/21/22 08:00 BP 125/88 11/21/22 08:00 Pulse Ox 100 11/21/22 08:00 FiO2 21 11/20/22 09:55 Intake & Output 11/20/22 11/21/22 11/21/22 18:59 06:59 18:59 Other: Voiding Method Toilet # Voids 2 1 - Labs CBC & Chem 7: 11/18/22 09:38 11/19/22 20:50
[2022-11-21] MEDS: busPIRone HCl 10 MG TAB PO SCH ×2 (09:52→15:06)
[2022-11-21] MEDS: METOPROLOL TARTRATE 50 MG TAB PO SCH (09:52)
[2022-11-21] MEDS: ASPIRIN 81 MG PO SCH (09:53)
[2022-11-21] MEDS: THIAMINE 100 MG TAB PO SCH (09:53)
[2022-11-21 10:17] LABS: Glucose,Whole Blood 104 mg/dL (70-110)
[2022-11-21] MEDS ORDERED: IV FLUID CONTINUATION 1,000 ML IV ONE (11:45)
[2022-11-21] MEDS ORDERED: VERAPAMIL 2.5 MG/ML 2 ML AMP ONE (12:19)
[2022-11-21] MEDS ORDERED: fentaNYL (PF) 50 MCG/ML 2 ML AMP ONE (12:28)
[2022-11-21] MEDS ORDERED: fentaNYL (PF) 50 MCG/ML 2 ML AMP IV ONE (12:30)
[2022-11-21] MEDS ORDERED: LIDOCAINE 1% INJ 10MG/ML (5 ML VIAL-PF) SQ ONE (12:30)
[2022-11-21] MEDS ORDERED: MIDAZOLAM 2 MG/2 ML VIAL IV ONE (12:30)
[2022-11-21] MEDS ORDERED: VERAPAMIL SYRINGE (5 MG/10 ML) INTRAARTER ONE (12:33)
[2022-11-21] MEDS ORDERED: IOPAMIDOL-370 125ML BTL INJ ONE (12:41)
--- NOTE | 2022-11-21 12:47 | P.CARDCATH ---
Description of Procedure: PROCEDURES PERFORMED: Left heart catheterization, bilateral coronary angiography INDICATION: Chest pain with exertion concerning for angina CONSENT:I have discussed the risks, benefits and alternative therapies for the above-mentioned procedure and for both sedation/analgesia as well as necessary blood product administration, if indicated, as they pertain to this patient. The patient has indicated understanding and acceptance of the risks and procedures discussed. PROCEDURE: After the risks, benefits and alternatives of the above mentioned procedure explained in detail with the patient, informed consent was obtained. Patient was taken to the catheterization lab and prepped and draped in usual fashion. 1% lidocaine was used to anesthetize the right radial artery. A 6- Bahamian sheath was placed in the right radial artery using modified Seldinger technique. Left coronary angiography was performed with a 5-Bahamian JL 3.5 catheter and right coronary angiography was performed with a 5-Bahamian JR5 catheter in various views. A 5-Bahamian FR5 catheter was inserted into the left ventricle and pressure measurements were obtained. The right radial sheath was removed and a TR band was placed with hemostasis achieved. The patient tolerated the procedure well. Patient was transported back to the post catheterization holding area in stable condition. Conscious Sedation: Patient was monitored under the direct supervision of myself for conscious sedation using Versed and fentanyl for a total duration of 11 minutes HEMODYNAMICS: Ao: 125/76 LV: 118/5, LVEDP 21 SELECTIVE CORONARY ARTERIOGRAPHY: LEFT MAIN: The left main is a large caliber vessel which bifurcates into the LAD and circumflex. There is no significant stenosis. LEFT ANTERIOR DESCENDING CORONARY ARTERY: LAD is a large caliber vessel which wraps around to the apex. There is no significant stenosis. LEFT CIRCUMFLEX CORONARY ARTERY: Left circumflex is a moderate caliber vessel without significant stenosis. RIGHT CORONARY ARTERY: The right coronary artery is a large caliber vessel which gives off a PDA and PLV branch and is the dominant vessel. There is no significant stenosis. FINAL IMPRESSION: 1. Normal coronary arteries as described above. 2. Elevated left sided filling pressures PLAN: 1. Aggressive risk factor modification per most recent ACC/AHA guidelines. 2. Follow-up in the office in 1-2 weeks.
--- NOTE | 2022-11-21 16:15 | P.DS ---
Providers Date of admission: 11/18/22 13:51 Expected date of discharge: 11/21/22 Attending physician: Jennifer Ramirez, Consults: 11/19/22 15:16 Consult Physician Routine Consulting Provider: Marbin Alex Consult Reason/Comments: exertional dyspnea and tachycardia with minimal ambulation, 140's-150's. Do you want consulting provider notified?: Yes Primary care physician: Stated None Hospital Course: Discharge Diagnosis: Sinus tachycardia Exertional shortness of breath Palpitations Polysubstance abuse, patient reports last abused Adderall and Xanax greater than 2 weeks ago. Alcohol abuse Nicotine dependence Hypertension History of CVA Lactic acidosis, resolved after IV fluid hydration. Prerenal azotemia, improved with IV fluid hydration. Hospital Course: Patient is a very pleasant 32-year-old male with a past medical history of hypertension, CVA without deficits, alcohol abuse, nicotine dependence and polysubstance abuse. He was currently attending [facility] [place] due to reports of alcohol abuse, Xanax abuse, Adderall abuse, and Kratum use. Patient reports he was recently diagnosed with Covid 19 infection on 11/11/22. Patient states he was asymptomatic until yesterday when he began noticing shortness of breath with exertion accompanied by palpitations. Patient states shortness of breath was noted with general walking in which she typically never experienced. She denies having any chest pain, headache, lightheadedness, dizziness, changes in vision or hearing, nausea, vomiting, or experiencing any numbness/tingling/weakness/swelling in his extremities. Patient underwent full evaluation in the emergency department. Labs completed and reviewed. CBC showing normocytic normochromic anemia with hemoglobin of 11.2 and mild thrombocytosis with platelet count of 478. Coagulation profile normal findings. D-dimer negative at less than 0.17. BMP unremarkable. Liver profile unremarkable. Troponin negative at less than 0.012. TSH normal findings at 1.390. EKG completed revealing normal sinus rhythm and 90 bpm with no noted T-wave or ST abnormalities showing no signs of acute ischemia. Patient's resting heart rate 90s but with minimal ambulation 130s to 150s. Chest x-ray reviewed and negative for acute cardiopulmonary process. Discussed in detail with the ED provider. Patient to be admitted under our services to observation unit at this time. CTA was completed overnight and reviewed negative for acute process showing no signs of pulmonary emboli. Patient continued to have episodes of tachycardia and on the evening of 09/21/22 patient's resting heart rate increasing to 138. Beta zachary was increased from 25 mg twice a day to 50 mg twice a day and cardiology was consulted. Troponins repeated and trended by cardiology again negative at less than 0.0122 additional draws. Cardiology evaluated patient and took patient for stress test, however stress test results showing poor exercise tolerance with normal EKG response to exercise. Cardiology further evaluated and recommended patient undergo cardiac cath. Physical exam: Vital signs reviewed and stable. General: Nontoxic, no distress and appears stated age. Derm: Skin warm and dry, normal coloration for ethnicity. Head: Atraumatic, normocephalic and symmetric. Eyes: EOMs intact, no lid lag, and anicteric sclera Mouth: no lip lesions, mucus membranes moist Cardiovascular: regular rate and rhythm with normal S1S2, no murmur, positive posterior tibial pulses bilaterally, and cap refill < 2 seconds. Lungs: Respirations even, regular, and unlabored on room air. Lungs CTA bilaterally, no rhonchi, no rales, no wheezing, and no accessory muscle usage. Abdominal: soft, nontender to palpation, no guarding, no appreciable organomegaly Ext: ROM intact. No gross muscle atrophy, no edema, no contractures Neuro: Speech clear, face symmetrical and CN II-XII grossly intact with no noted focal neuro deficits Psych: Alert and oriented to person, place, time, and situation. Appropriate and pleasant affect. A total of 31 minutes of time were spent preparing this complex discharge summary. Pt was discharged on 11/21/22 at 4:14 PM Patient was seen independently by Nurse Practitioner. This document was prepared using [email or web address] dictation software. Please allow for errors in marketing services coordinator while rare they do occur. I reviewed the documentation as provided by the NAZ above, who is the original author of this note. I agree with the documented assessment and plan, with the following changes: none Patient Condition at Discharge: Stable Plan - Discharge Summary New Discharge Prescriptions: New Metoprolol Tartrate [Lopressor] 50 mg PO BID 60 Days #60 tab Continue guaiFENesin [guaiFENesin Oral Solution] 200 mg PO Q4H PRN PRN Reason: Congestion busPIRone HCL 10 mg PO TID Calcium Carb/Mag Ox/Zinc Sulf [[id number] 334-134-5 mg Tab] 1 tab PO TID PRN PRN Reason: cramps ondansetron HCL [Zofran] 8 mg PO Q6H PRN PRN Reason: Nausea Thiamine [Vitamin B-1] 100 mg PO DAILY Acetaminophen [Tylenol] 650 mg PO Q4H PRN MDD 4 doses PRN Reason: Pain Or Fever > 100.5 Multivitamins, Thera [Multivitamin (formulary)] 1 tab PO DAILY Ibuprofen [Motrin Ib] 600 mg PO Q6H PRN PRN Reason: Pain Hyoscyamine Sulfate [Levsin] 0.125 mg PO QID PRN PRN Reason: cramps Loperamide HCl [Imodium A-D] 4 mg PO QID PRN MDD 8 tablets PRN Reason: Diarrhea Chlorpheniramine Maleate [Chlor-Trimeton] 4 mg PO Q4H PRN PRN Reason: Allergy Symptoms Discontinued Metoprolol Tartrate [Lopressor] 25 mg PO BID Discharge Medication List Acetaminophen [Tylenol] 650 mg PO Q4H PRN MDD 4 doses 11/18/22 [History] Calcium Carb/Mag Ox/Zinc Sulf [[id number] 334-134-5 mg Tab] 1 tab PO TID PRN 11/18/22 [History] Chlorpheniramine Maleate [Chlor-Trimeton] 4 mg PO Q4H PRN 11/18/22 [History] Hyoscyamine Sulfate [Levsin] 0.125 mg PO QID PRN 11/18/22 [History] Ibuprofen [Motrin Ib] 600 mg PO Q6H PRN 11/18/22 [History] Loperamide HCl [Imodium A-D] 4 mg PO QID PRN MDD 8 tablets 11/18/22 [History] Multivitamins, Thera [Multivitamin (formulary)] 1 tab PO DAILY 11/18/22 [History] Thiamine [Vitamin B-1] 100 mg PO DAILY 11/18/22 [History] busPIRone HCL 10 mg PO TID 11/18/22 [History] guaiFENesin [guaiFENesin Oral Solution] 200 mg PO Q4H PRN 11/18/22 [History] ondansetron HCL [Zofran] 8 mg PO Q6H PRN 11/18/22 [History] Metoprolol Tartrate [Lopressor] 50 mg PO BID 60 Days #60 tab 11/21/22 [Rx] Follow up Appointment(s)/Referral(s): Kee Rose MD [REFERRING] - 1 Week Alejandro Raza DO [STAFF PHYSICIAN] - 1 Week Patient Instructions/Handouts: Heart Palpitations (DC), Atrial Tachycardia (DC) Discharge Disposition: HOME SELF-CARE
[2022-11-21 19:20] VITALS: BP 123/77; RESP 18; TEMP 97.5
[2022-11-21 19:30] VITALS: PULSE 110
== END 2022-11-21 18:55 | disposition home or self-care (01) ==
LOC: EC 09:09 → 3SCARD 13:51 → 6NMEDSUR 15:09
PROVIDERS: ADMIT Internal Medicine; ATTEND Internal Medicine
DX: R00.0 Tachycardia, unspecified (principal); R06.09 Other forms of dyspnea; R06.02 Shortness of breath; R07.89 Other chest pain; I10 Essential (primary) hypertension; D64.9 Anemia, unspecified; D75.839 Thrombocytosis, unspecified; R00.2 Palpitations; E87.20 Acidosis, unspecified; R79.89 Other specified abnormal findings of blood chemistry; F17.200 Nicotine dependence, unspecified, uncomplicated; F10.10 Alcohol abuse, uncomplicated; F19.10 Other psychoactive substance abuse, uncomplicated; Z86.16 Personal history of COVID-19; Z86.73 Personal history of transient ischemic attack (TIA), and cerebral infarction without residual deficits; Z79.899 Other long term (current) drug therapy; Z91.040 Latex allergy status; Z82.49 Family history of ischemic heart disease and other diseases of the circulatory system
CPT/HCPCS: 99285; 36415; 94760 ×2; 93005; 93017; 93306; 93458; 85379; 80053; 80048; 84443; 83605 ×2; 83735; 84484 ×2; 85025; 85610; 85730; 71046; 71275; G0378 ×4; C1769; C1894; J2250; J2001; J3010; Q9967 ×2; J1644 ×2